=== PATIENT | female | born 1985 | race African-American/Black ===

== ENCOUNTER 2019-12-08 15:35 | Inpatient (IN) ==
[2019-12-08] MEDS ORDERED: ZALEPLON 5 MG CAPSULE PO PRN (21:27)
[2019-12-08] MEDS ORDERED: PROMETHAZINE 25 MG/1 ML VIAL IM PRN (21:27)
[2019-12-08] MEDS ORDERED: ALBUTEROL 2.5 MG/3 ML NEB RESP TX PRN (21:27)
[2019-12-08] MEDS ORDERED: ONDANSETRON 4 MG/2 ML VIAL IV PRN (21:27)
[2019-12-08] MEDS ORDERED: GLUCAGON 1 MG VIAL IM PRN (21:30)
[2019-12-08] MEDS ORDERED: SODIUM CHLORIDE 0.9% 1,000 ML IV SCH (21:30)
[2019-12-08] MEDS ORDERED: DEXTROSE 50% 25 GM/50 ML VIAL IV PRN (21:30)
[2019-12-08] MEDS ORDERED: SODIUM CHLORIDE 0.45% 1,000 ML IV SCH (21:30)
[2019-12-08] MEDS: MORPHINE 4 MG/1 ML VIAL IV PRN (21:45)
[2019-12-08 21:56] LABS: Basophils # 0.1 10*3/uL (0.0-0.2); Basophils % 0.3 % (0.0-0.8); Eosinophils # 0.1 10*3/uL (0.0-0.87); Eosinophils % 0.8 % (0.00-10.9); Hematocrit 38.3 VOL% (35.7-47.0); Hemoglobin 12.7 GM/DL (12.0-16.0); Immature Granulocytes % 1.3 %; Immature Granulocytes Absolute 0.22 #; Lymphocytes # 2.2 10*3/uL (1.4-4.0); Lymphocytes % 13.7 % (21.3-54.2); Mean Corpuscular HGB Conc 33.2 GM/DL (32-36); Mean Corpuscular Volume 84.9 FL (87-102); Mean Platelet Volume 9.5 FL (9.6-12.0); Monocytes % 9.4 % (1.7-12.7); Neutrophils % 74.5 % (38.7-73.9); Platelet Count 329 T/CUMM (130-400); Red Blood Count 4.51 MC/CUMM (3.8-5.5); Red Cell Distribution Width 13.9 % (9.3-17.3); White Blood Count 16.3 T/CUMM (4-12)
[2019-12-08] MEDS: PIPERACILLIN/TAZOBACTAM 3,375 MG in SODIUM CHLORIDE 0.9% 100 ML IV SCH (22:00)
[2019-12-08] MEDS: SODIUM CHLOR 0.9% KCL 20 MEQ 20 MEQ/1,000 ML BAG IV SCH (22:00)
[2019-12-08 22:11] LABS: Calcium 9.1 MG/DL (8.5-10.1); Osmolality,Calculated 276.1 MOS/KG (273-304)
[2019-12-08] MEDS ORDERED: SODIUM CHLORIDE 0.9% 1,000 ML IV ONE (22:26)
[2019-12-08] MEDS: INSULIN REGULAR 100 UNIT/ML SUBCUT SCH ×2 (22:33→23:56)
[2019-12-08] MEDS ORDERED: INSULIN REGULAR 100 UNIT/ML ONE (22:36)
[2019-12-09] MEDS: VANCOMYCIN INJ 1,500 MG in SODIUM CHLORIDE 0.9% 500 ML IV SCH ×2 (02:20→14:54)
[2019-12-09 02:29] LABS: Basophils # 0.1 10*3/uL (0.0-0.2); Basophils % 0.4 % (0.0-0.8); Eosinophils # 0.2 10*3/uL (0.0-0.87); Eosinophils % 1.1 % (0.00-10.9); Hematocrit 36.2 VOL% (35.7-47.0); Hemoglobin 12.5 GM/DL (12.0-16.0); Immature Granulocytes % 1.3 %; Immature Granulocytes Absolute 0.23 #; Lymphocytes # 2.5 10*3/uL (1.4-4.0); Lymphocytes % 13.9 % (21.3-54.2); Mean Corpuscular HGB Conc 34.5 GM/DL (32-36); Mean Corpuscular Volume 82.3 FL (87-102); Mean Platelet Volume 9.7 FL (9.6-12.0); Monocytes % 6.4 % (1.7-12.7); Neutrophils % 76.9 % (38.7-73.9); Platelet Count 349 T/CUMM (130-400); Red Cell Distribution Width 13.6 % (9.3-17.3)
[2019-12-09 02:31] LABS: Calcium 8.7 MG/DL (8.5-10.1); Osmolality,Calculated 277.5 MOS/KG (273-304)
[2019-12-09] MEDS: INSULIN REGULAR 100 UNIT/ML SUBCUT SCH ×11 (02:41→22:35)
[2019-12-09] MEDS: SODIUM CHLOR 0.9% KCL 20 MEQ 20 MEQ/1,000 ML BAG IV SCH ×2 (03:03→03:09)
[2019-12-09] MEDS: MORPHINE 4 MG/1 ML VIAL IV PRN ×2 (03:32→07:40)
[2019-12-09] MEDS: PIPERACILLIN/TAZOBACTAM 3,375 MG in SODIUM CHLORIDE 0.9% 100 ML IV SCH ×3 (06:11→22:38)
[2019-12-09] MEDS ORDERED: ONDANSETRON 4 MG/2 ML VIAL IV PRN (08:50)
[2019-12-09] MEDS ORDERED: SEVOFLURANE 1 UNIT/15 MINUTE INH ONE (08:52)
[2019-12-09] MEDS ORDERED: propofoL 200 MG/20 ML VIAL IV ONE (08:52)
[2019-12-09] MEDS ORDERED: LIDOCAINE 2% 5 ML VIAL ONE (08:52)
[2019-12-09] MEDS ORDERED: MIDAZOLAM 2 MG/2 ML VIAL ONE (08:52)
[2019-12-09] MEDS ORDERED: KETOROLAC 30 MG/1 ML VIAL ONE (08:53)
[2019-12-09] MEDS ORDERED: fentaNYL 100 MCG/2 ML VIAL ONE (08:53)
[2019-12-09] MEDS ORDERED: ONDANSETRON 4 MG/2 ML VIAL ONE ×2 (08:53→08:58)
[2019-12-09] MEDS ORDERED: HYDROmorphone 2 MG/1 ML VIAL ONE (08:57)
[2019-12-09] MEDS: HYDROmorphone 2 MG/1 ML VIAL IV PRN ×3 (08:59→09:13)
[2019-12-09] MEDS ORDERED: PANTOPRAZOLE 40 MG VIAL IV SCH (09:00)
[2019-12-09] MEDS: ENOXAPARIN 40 MG/0.4 ML SYRINGE SUBCUT SCH (09:40)
[2019-12-09] MEDS: DEXTROSE 5% LACTATED RINGERS 1,000 ML IV SCH ×3 (09:40→16:17)
[2019-12-09] MEDS: INSULIN GLARGINE 100 UNIT/ML SUBCUT SCH ×2 (10:02→10:10)
[2019-12-09] MEDS: GABAPENTIN 100 MG CAPSULE PO SCH ×3 (10:10→21:15)
[2019-12-09] MEDS: FLUCONAZOLE 150 MG TABLET PO SCH (10:10)
[2019-12-09 10:45] LABS: Calcium 8.4 MG/DL (8.5-10.1); Osmolality,Calculated 271.8 MOS/KG (273-304)
[2019-12-10] MEDS: INSULIN REGULAR 100 UNIT/ML SUBCUT SCH ×10 (00:23→18:06)
[2019-12-10] MEDS: DEXTROSE 5% LACTATED RINGERS 1,000 ML IV SCH ×3 (01:27→18:00)
[2019-12-10] MEDS: VANCOMYCIN INJ 1,500 MG in SODIUM CHLORIDE 0.9% 500 ML IV SCH ×2 (01:28→14:55)
[2019-12-10] MEDS: PIPERACILLIN/TAZOBACTAM 3,375 MG in SODIUM CHLORIDE 0.9% 100 ML IV SCH ×3 (06:11→21:29)
[2019-12-10] MEDS: MORPHINE 4 MG/1 ML VIAL IV PRN ×3 (06:28→21:03)
[2019-12-10] MEDS ORDERED: MAGNESIUM SULF RIDER 2 GM in PREMIX 1 EACH IV ONE ×2 (07:56→10:30)
[2019-12-10 07:59] LABS: Osmolality,Calculated 274.7 MOS/KG (273-304)
[2019-12-10] MEDS: INSULIN GLARGINE 100 UNIT/ML SUBCUT SCH (08:49)
[2019-12-10] MEDS: GABAPENTIN 100 MG CAPSULE PO SCH ×3 (08:49→21:29)
[2019-12-10] MEDS: PANTOPRAZOLE 40 MG TABLET PO SCH (08:49)
[2019-12-10] MEDS: ENOXAPARIN 40 MG/0.4 ML SYRINGE SUBCUT SCH (08:49)
[2019-12-10] MEDS: FLUCONAZOLE 150 MG TABLET PO SCH (08:51)
[2019-12-10] MEDS: SODIUM HYPOCHLORITE 0.25% IRRIG 473 ML BOTTLE TOP SCH (11:55)
[2019-12-10] MEDS: DESITIN 4OZ/NYSTATIN 15 GRAM MIXTURE PASTE TOP SCH ×2 (16:42→21:30)
[2019-12-10] MEDS: LACTATED RINGERS 1,000 ML IV SCH (18:15)
[2019-12-11] MEDS: INSULIN REGULAR 100 UNIT/ML SUBCUT SCH ×5 (00:26→17:11)
[2019-12-11] MEDS: VANCOMYCIN INJ 1,500 MG in SODIUM CHLORIDE 0.9% 500 ML IV SCH (02:06)
[2019-12-11 05:13] LABS: Calcium 7.9 MG/DL (8.5-10.1); Osmolality,Calculated 276.8 MOS/KG (273-304)
[2019-12-11] MEDS: PIPERACILLIN/TAZOBACTAM 3,375 MG in SODIUM CHLORIDE 0.9% 100 ML IV SCH (06:27)
[2019-12-11] MEDS: LACTATED RINGERS 1,000 ML IV SCH (07:38)
[2019-12-11] MEDS: INSULIN GLARGINE 100 UNIT/ML SUBCUT SCH (09:00)
[2019-12-11] MEDS: GABAPENTIN 100 MG CAPSULE PO SCH ×3 (09:02→21:54)
[2019-12-11] MEDS: PANTOPRAZOLE 40 MG TABLET PO SCH (09:02)
[2019-12-11] MEDS: ENOXAPARIN 40 MG/0.4 ML SYRINGE SUBCUT SCH (09:02)
[2019-12-11] MEDS: FLUCONAZOLE 150 MG TABLET PO SCH (09:03)
[2019-12-11] MEDS: NICOTINE 21 MG/24 HR PATCH TRANSDERM SCH (10:02)
[2019-12-11] MEDS: DESITIN 4OZ/NYSTATIN 15 GRAM MIXTURE PASTE TOP SCH ×2 (10:05→22:01)
[2019-12-11] MEDS ORDERED: LEVOFLOXACIN INJ 500 MG in PREMIX 1 EACH IV SCH (12:00)
[2019-12-11] MEDS: SODIUM HYPOCHLORITE 0.25% IRRIG 473 ML BOTTLE TOP SCH (15:18)
[2019-12-11] MEDS: MORPHINE 4 MG/1 ML VIAL IV PRN (21:53)
[2019-12-12] MEDS: INSULIN REGULAR 100 UNIT/ML SUBCUT SCH ×2 (01:28→06:23)
[2019-12-12 05:32] LABS: Basophils % 0.5 % (0.0-0.8); Eosinophils # 0.2 10*3/uL (0.0-0.87); Eosinophils % 3.6 % (0.00-10.9); Hematocrit 31.1 VOL% (35.7-47.0); Hemoglobin 10.5 GM/DL (12.0-16.0); Immature Granulocytes % 1.2 %; Immature Granulocytes Absolute 0.07 #; Lymphocytes % 33.3 % (21.3-54.2); Mean Corpuscular HGB Conc 33.8 GM/DL (32-36); Mean Corpuscular Volume 82.3 FL (87-102); Mean Platelet Volume 9.8 FL (9.6-12.0); Monocytes % 8.3 % (1.7-12.7); Neutrophils % 53.1 % (38.7-73.9); Platelet Count 361 T/CUMM (130-400); Red Blood Count 3.78 MC/CUMM (3.8-5.5); Red Cell Distribution Width 13.9 % (9.3-17.3); White Blood Count 5.9 T/CUMM (4-12)
[2019-12-12 05:53] LABS: Calcium 8.2 MG/DL (8.5-10.1); Osmolality,Calculated 284.4 MOS/KG (273-304)
[2019-12-12 08:23] VITALS: BP 122/75
[2019-12-12] MEDS ORDERED: INSULIN GLARGINE 100 UNIT/ML SUBCUT SCH (09:07)
[2019-12-12] MEDS: ENOXAPARIN 40 MG/0.4 ML SYRINGE SUBCUT SCH (10:06)
[2019-12-12] MEDS: SODIUM HYPOCHLORITE 0.25% IRRIG 473 ML BOTTLE TOP SCH (10:06)
[2019-12-12] MEDS: GABAPENTIN 100 MG CAPSULE PO SCH (10:07)
[2019-12-12] MEDS: PANTOPRAZOLE 40 MG TABLET PO SCH (10:07)
[2019-12-12] MEDS: NICOTINE 21 MG/24 HR PATCH TRANSDERM SCH (10:08)
[2019-12-12] MEDS: DESITIN 4OZ/NYSTATIN 15 GRAM MIXTURE PASTE TOP SCH (10:12)
[2019-12-12] MEDS: INSULIN GLARGINE 100 UNIT/ML SUBCUT SCH (10:33)
== END 2019-12-12 11:40 | disposition home or self-care (01) | DRG 951 ==
LOC: SUATTDRO 20:19 → N.ICU 20:19 → N.3E 12-11 17:07
PROVIDERS: ADMIT Internal Medicine; ATTEND Internal Medicine